=== PATIENT | female | born 1955 | race Caucasian/White ===

== ENCOUNTER 2016-10-22 21:12 | Emergency (ER) | payer OTHER ==
[2016-10-22 21:22] VITALS: BP 161/83; BMI 26.5
[2016-10-22] MEDS ORDERED: ZOFRAN INJ 4 MG VIAL ONE (21:22)
[2016-10-22] MEDS ORDERED: ZOFRAN INJ 4 MG VIAL IVP ONE (21:23)
[2016-10-22] MEDS ORDERED: MORPHINE SULFATE INJ 4 MG IVP ONE (21:23)
[2016-10-22] MEDS ORDERED: MORPHINE SULFATE INJ 4 MG ONE (21:23)
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
[2016-10-22 21:40] LABS: BASOPHILS % (AUTO) 0.6 % (0.2-1.0); EOSINOPHILS # (AUTO) 0.1 x10^3/uL (0.0-0.2); EOSINOPHILS % (AUTO) 1.2 % (0.9-2.9); HEMATOCRIT 38.1 % (36.0-47.0); HEMOGLOBIN 12.9 g/dL (12.0-16.0); LYMPHOCYTES # (AUTO) 3.7 X10^3/uL (1.3-2.9); LYMPHOCYTES % (AUTO) 48.4 % (21.0-51.0); MEAN CORPUSCULAR HEMOGLOBIN 28.6 pg (27.0-34.0); MEAN CORPUSCULAR HGB CONC 33.9 g/dL (33.0-35.0); MEAN CORPUSCULAR VOLUME 84.3 fL (80.0-100.0); MEAN PLATELET VOLUME 7.6 fL (7.4-11.0); MONOCYTES # (AUTO) 0.6 x10^3/uL (0.3-0.8); MONOCYTES % (AUTO) 7.3 % (0.0-13.0); NEUTROPHILS # (AUTO) 3.2 x10^3/uL (2.2-4.8); NEUTROPHILS % (AUTO) 42.5 % (42.0-75.0); PLATELET COUNT 244 X10^3/uL (150.0-450.0); RED BLOOD COUNT 4.51 X10^6/uL (3.5-5.4); RED CELL DISTRIBUTION WIDTH 13.1 % (11.6-16.5); WHITE BLOOD COUNT 7.6 X10^3/uL (3.6-10.0)
[2016-10-22 22:01] LABS: BLOOD UREA NITROGEN 18 mg/dL (7-18); CALCIUM 9.2 mg/dL (8.5-10.1); CARBON DIOXIDE 23.8 mmol/L (21-32); CHLORIDE 106 mmol/L (98-107); COR NA(FOR HYPERGLY) 143 mmol/L (136-145); CREATININE 1.03 mg/dL (0.55-1.02); GLUCOSE 151 mg/dL (65-99); SODIUM 142 mmol/L (136-145); TROPONIN I < 0.02 ng/mL (0-1.5); eGFR BLACK RACES > 60 (>60); eGFR NON BLACK RACES 58 (>60)
[2016-10-22 22:07] LABS: ALANINE AMINOTRANSFERASE 26 Units/L (12-78); ALKALINE PHOSPHATASE 63 Units/L (46-116); ASPARTATE AMINO TRANSFERASE 20 Units/L (15-37); CKMB % 1.5 % (<4); CREATINE KINASE 69 Units/L (26-192); CREATINE KINASE MB < 1.0 ng/mL (0-4.0); TOTAL PROTEIN 7.4 g/dL (6.4-8.2)
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
[2016-10-22] MEDS ORDERED: FLEXERIL TAB 10 MG PO ONE (23:40)
[2016-10-22] MEDS ORDERED: ULTRAM PO ONE (23:40)
[2016-10-22] MEDS ORDERED: FLEXERIL TAB 10 MG ONE (23:41)
[2016-10-22] MEDS ORDERED: ULTRAM ONE (23:43)
== END 2016-10-22 23:54 | disposition home or self-care (01) ==
LOC: ER 21:12
DX: R07.2 Precordial pain (principal); V49.9XXA Car occupant (driver) (passenger) injured in unspecified traffic accident, initial encounter
CPT/HCPCS: 36415; 70450; 71250; 72125; 73030; 80053; 82550; 82553; 84484; 85025; 93005; 96365; 96374; 96375; 99283; A4222; J2270; J2405

== ENCOUNTER 2016-11-29 21:45 | Emergency (ER) | payer SELFPAY ==
[2016-11-29 21:52] VITALS: BP 134/80; BMI 26.1
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
--- NOTE | 2016-11-29 23:26 | VAS ---
Exam: Left lower extremity ultrasound exam History: Lower extremity swelling/pain Comparison: None Technique: Real-time duplex scan of the lower extremity venous system was performed using B-mode/gra yscale imaging, Doppler spectral analysis, and color flow. Findings: Evaluation of the deep veins of the left lower extremity from the common femoral vein thr ough the popliteal vein demonstrated normal patency and no evidence of DVT. There was normal compre ssibility throughout the deep venous system. There was normal augmentation response, Valsalva respo nse, and respiratory phasicity. The deep veins below the knee were patent. Conclusion: Normal left lower extremity venous exam. No evidence of DVT. Reported By:
== END 2016-11-29 23:37 | disposition home or self-care (01) ==
LOC: ER 21:55
DX: I80.9 Phlebitis and thrombophlebitis of unspecified site (principal)
CPT/HCPCS: 36415; 85378; 93971; 99282; 99283

== ENCOUNTER 2017-05-10 17:12 | Emergency (ER) | payer OTHER ==
[2017-05-10 17:26] VITALS: BMI 26.1
[2017-05-10] MEDS ORDERED: TORADOL 30 MG VIAL IVP ONE (17:27)
[2017-05-10] MEDS ORDERED: TORADOL 30 MG VIAL ONE (17:28)
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
[2017-05-10] MEDS ORDERED: MORPHINE SULFATE INJ 4 MG IVP ONE (18:18)
[2017-05-10] MEDS ORDERED: ZOFRAN INJ 4 MG VIAL IVP ONE (18:18)
[2017-05-10] MEDS ORDERED: ZOFRAN INJ 4 MG VIAL ONE (18:19)
[2017-05-10] MEDS ORDERED: MORPHINE SULFATE INJ 4 MG ONE (18:20)
[2017-05-10] MEDS ORDERED: LEVSIN/MAALOX/LIDOC VISC PO ONE (19:45)
[2017-05-10] MEDS ORDERED: LEVSIN/MAALOX/LIDOC VISC ONE (19:46)
[2017-05-10 19:50] VITALS: BP 147/88
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
--- NOTE | 2017-05-10 21:12 | RAD ---
Examination: Left shoulder, two views History: Left shoulder pain he Findings: There is degenerative narrowing of the acromioclavicular joint. No fracture or dislocation or bone destruction or soft tissue calcification is noted. Impression: Degenerative changes of the acromioclavicular articulation. No acute process demonstrated . Reported By:
== END 2017-05-10 20:13 | disposition home or self-care (01) ==
LOC: ER 17:18
DX: S29.019A Strain of muscle and tendon of unspecified wall of thorax, initial encounter (principal); S39.012A Strain of muscle, fascia and tendon of lower back, initial encounter; S13.9XXA Sprain of joints and ligaments of unspecified parts of neck, initial encounter; S43.402A Unspecified sprain of left shoulder joint, initial encounter; S09.90XA Unspecified injury of head, initial encounter; G44.311 Acute post-traumatic headache, intractable; V87.7XXA Person injured in collision between other specified motor vehicles (traffic), initial encounter
CPT/HCPCS: 70450; 72125; 72128; 72131; 73030; 96365; 96374; 96375; 99283; J1885; J2270; J2405

== ENCOUNTER 2019-10-28 14:38 | Observation (INO) ==
[2019-10-28 15:39] LABS: BASOPHILS % (AUTO) 0.5 % (0.2-1.0); EOSINOPHILS # (AUTO) 0.1 x10^3/uL (0.0-0.2); EOSINOPHILS % (AUTO) 1.6 % (0.9-2.9); HEMATOCRIT 40.4 % (36.0-47.0); HEMOGLOBIN 13.6 g/dL (12.0-16.0); LYMPHOCYTES # (AUTO) 3.1 X10^3/uL (1.3-2.9); LYMPHOCYTES % (AUTO) 37.6 % (21.0-51.0); MEAN CORPUSCULAR HGB CONC 33.6 g/dL (33.0-35.0); MEAN CORPUSCULAR VOLUME 86.3 fL (80.0-100.0); MEAN PLATELET VOLUME 7.7 fL (7.4-11.0); MONOCYTES # (AUTO) 0.6 x10^3/uL (0.3-0.8); MONOCYTES % (AUTO) 6.9 % (0.0-13.0); NEUTROPHILS # (AUTO) 4.5 x10^3/uL (2.2-4.8); NEUTROPHILS % (AUTO) 53.4 % (42.0-75.0); PLATELET COUNT 274 X10^3/uL (150.0-450.0); RED BLOOD COUNT 4.68 X10^6/uL (3.5-5.4); RED CELL DISTRIBUTION WIDTH 12.9 % (11.6-16.5); WHITE BLOOD COUNT 8.3 X10^3/uL (3.6-10.0)
--- NOTE | 2019-10-28 15:41 | RAD ---
HISTORYchest pain, sob, tachycardiaSTUDYCHEST, 1 VIEWCOMPARISONNoneFINDINGSThe trachea is midline. The cardiac silhouette is unremarkable . The lungs are clear without focal infiltrate or effusion. The bony thorax is unremarkable.IMPRESSIONNo acute cardiopulmonary disease.Electronically signed by: NATALIE BURCH (Oct 28, 2019 15:40:37)
[2019-10-28 16:12] LABS: ALANINE AMINOTRANSFERASE 37 Units/L (12-78); ALBUMIN 4.4 g/dL (3.4-5.0); ALKALINE PHOSPHATASE 53 Units/L (46-116); ASPARTATE AMINO TRANSFERASE 22 Units/L (15-37); BLOOD UREA NITROGEN 13 mg/dL (7-18); CALCIUM 9.8 mg/dL (8.5-10.1); CARBON DIOXIDE 24.7 mmol/L (21-32); CHLORIDE 103 mmol/L (98-107); CKMB % 1.3 % (<4); COR NA(FOR HYPERGLY) 143 mmol/L (136-145); CREATINE KINASE 75 Units/L (26-192); CREATINE KINASE MB < 1.0 ng/mL (0-4.0); CREATININE 0.88 mg/dL (0.55-1.02); SODIUM 142 mmol/L (136-145); TOTAL PROTEIN 7.7 g/dL (6.4-8.2); TROPONIN I < 0.02 ng/mL (0-1.5); eGFR NON BLACK RACES > 60 (>60)
[2019-10-28] MEDS ORDERED: MICRO K EXTEN CAP 10 MEQ PO PRN (16:40)
[2019-10-28] MEDS ORDERED: POTASSIUM CHL 40 MEQ/NS 0.45% 500 ML IV PRN (16:40)
[2019-10-28] MEDS ORDERED: KLOR-CON PO PRN (16:40)
[2019-10-28] MEDS ORDERED: MAGNESIUM SULFATE 1 GRAM/100 mL PREMIX 1 GM/100 ML BAG IV PRN (16:40)
[2019-10-28] MEDS ORDERED: K-DUR TAB 20 MEQ PO PRN (16:40)
[2019-10-28] MEDS ORDERED: K-RIDER 10 MEQ/NS 100 ML 10 MEQ/100 ML BAG IV PRN (16:40)
[2019-10-28] MEDS ORDERED: POTASSIUM CHLORIDE LIQ 20 MEQ UDC PO PRN (16:40)
[2019-10-28] MEDS ORDERED: POTASSIUM CHL 60 MEQ/NS 0.45% 500 ML IV PRN (16:40)
[2019-10-28 17:00] VITALS: BMI 27.8
[2019-10-28] MEDS: NS 1000 ML 1,000 ML IV SCH (17:16)
[2019-10-28] MEDS ORDERED: KLOR-CON ONE (17:20)
[2019-10-28 18:33] LABS: AMYLASE 121 Units/L (25-115); LIPASE 331 Units/L (73-393)
[2019-10-28] MEDS ORDERED: XANAX PO PRN (19:43)
[2019-10-28 20:04] LABS: CKMB % 1.5 % (<4); CREATINE KINASE 66 Units/L (26-192); CREATINE KINASE MB < 1.0 ng/mL (0-4.0); TROPONIN I < 0.02 ng/mL (0-1.5)
[2019-10-28] MEDS: PROTONIX INJ 40 MG VIAL IVP SCH (20:15)
[2019-10-28] MEDS: REGLAN TAB 10 MG PO SCH (20:15)
[2019-10-28] MEDS ORDERED: TYLENOL 325 MG TAB PO PRN (21:08)
[2019-10-28 23:41] LABS: CKMB % 1.8 % (<4); CREATINE KINASE 57 Units/L (26-192); CREATINE KINASE MB < 1.0 ng/mL (0-4.0); TROPONIN I < 0.02 ng/mL (0-1.5)
[2019-10-29 05:51] LABS: BASOPHILS % (AUTO) 0.5 % (0.2-1.0); EOSINOPHILS # (AUTO) 0.2 x10^3/uL (0.0-0.2); EOSINOPHILS % (AUTO) 3.3 % (0.9-2.9); HEMATOCRIT 37.4 % (36.0-47.0); HEMOGLOBIN 12.7 g/dL (12.0-16.0); LYMPHOCYTES # (AUTO) 2.4 X10^3/uL (1.3-2.9); LYMPHOCYTES % (AUTO) 43.1 % (21.0-51.0); MEAN CORPUSCULAR HEMOGLOBIN 29.5 pg (27.0-34.0); MEAN CORPUSCULAR VOLUME 86.8 fL (80.0-100.0); MEAN PLATELET VOLUME 7.9 fL (7.4-11.0); MONOCYTES # (AUTO) 0.5 x10^3/uL (0.3-0.8); MONOCYTES % (AUTO) 8.1 % (0.0-13.0); NEUTROPHILS # (AUTO) 2.5 x10^3/uL (2.2-4.8); PLATELET COUNT 228 X10^3/uL (150.0-450.0); RED BLOOD COUNT 4.31 X10^6/uL (3.5-5.4); RED CELL DISTRIBUTION WIDTH 13.3 % (11.6-16.5); WHITE BLOOD COUNT 5.6 X10^3/uL (3.6-10.0)
[2019-10-29 06:02] LABS: ALANINE AMINOTRANSFERASE 30 Units/L (12-78); ALBUMIN 3.6 g/dL (3.4-5.0); ALKALINE PHOSPHATASE 45 Units/L (46-116); ASPARTATE AMINO TRANSFERASE 18 Units/L (15-37); BLOOD UREA NITROGEN 14 mg/dL (7-18); CALCIUM 8.7 mg/dL (8.5-10.1); CARBON DIOXIDE 24.9 mmol/L (21-32); CHLORIDE 107 mmol/L (98-107); CHOL/HDL RATIO 5.4 (0.0-5.0); CHOLESTEROL 172 mg/dL (0-200); COR NA(FOR HYPERGLY) 142 mmol/L (136-145); CREATININE 0.81 mg/dL (0.55-1.02); HDL CHOLESTEROL 32 mg/dL (40-60); SODIUM 141 mmol/L (136-145); TOTAL PROTEIN 6.6 g/dL (6.4-8.2); TRIGLYCERIDES 111 mg/dL (0-150); eGFR NON BLACK RACES > 60 (>60)
[2019-10-29] MEDS: NS 1000 ML 1,000 ML IV SCH (06:47)
[2019-10-29] MEDS: PROTONIX INJ 40 MG VIAL IVP SCH (08:18)
[2019-10-29] MEDS: REGLAN TAB 10 MG PO SCH (08:18)
--- NOTE | 2019-10-29 08:53 | DR.H&P ---
H&P - History & Physical for Day of: H&P Date: 10/28/19 - Chief Complaint Chief Complaint: SOB, PALPITATIONS, DIZZINESS - History of Present Illness History of Present Illness: PT IS 64 WF DIRECT ADMIT FROM DR GALAVIZ OFFICE AFTER PRESENTING WITH "ABOUT TO PASS OUT" PT HAD TACHYCARDIA AND SOB.PT HAD GENERALIZED PALLOR AND DIAPHORETIC ON EXAM. PT CO DIZZINESS WITH NUMBNESS TO LEFT HAND AND LEFT JAW, NECK. PT HAS PMH OF DM, CAD, AND HTN. PT STATES HER BLOOD SUGAR WAS NORMAL THIS AM AND SHE DENIES ANY KNOWN INJURY. - Past Medical History Past Medical History: Coronary Artery Disease, Diabetes - Past Surgical History Surgical History: Appendectomy, Cholecystectomy, Hysterectomy - Family History Family Medical History: Diabetes Mellitus, Hypertension - Social History Does patient currently use any type of tobacco product: No Have you used tobacco products in the last 12 months: No Type of Tobacco Use: None Does any household member use tobacco: No Alcohol Use: None Drug Use: None - Medications Home Medications: Iodinated Contrast Media Allergy (Verified 10/28/19 15:17) morphine Allergy (Verified 10/28/19 15:17) CONTINUE taking the following medications alprazolam [Xanax] 0.5 mg PO DAILY PRN 10/28/19 [History] cyclobenzaprine 10 mg PO TID PRN 10/28/19 [History] diclofenac sodium 100 mg PO DAILY 10/28/19 [History] fluticasone propionate [Flonase Allergy Relief] 2 spray INTRANASAL BID 10/28/19 [History] gabapentin 300 mg PO DAILY 10/28/19 [History] metformin 500 mg PO BID 10/28/19 [History] metoclopramide HCl 10 mg PO BID 10/28/19 [History] pantoprazole [Protonix] 40 mg PO DAILY 10/28/19 [History] - Review of Systems Constitutional: Chills, Weakness Eyes: No Symptoms Reported ENT: No Symptoms Reported Respiratory: Shortness of Breath, SOB with Excertion Cardiovascular: Palpitations, Light Headedness Gastrointestinal: Nausea Musculoskeletal: No Symptoms Reported Skin: No Symptoms Reported Neurological: Weakness, Other (DIZZINESS, HEADACHE) - Physical Exam Vital Signs: Temperature 98.7 F Pulse Rate [Right Brachial] 88 Respiratory Rate 18 Blood Pressure [Right Arm] 129/73 Blood Pressure 125/74 O2 Sat by Pulse Oximetry 98 Oriented: Normal Eyes: Normal Ear: Normal Nose: Normal Throat: Normal Respiratory: RLL Diminished, LLL Diminished Cardiovascular: Tachycardia, Other : Normal Auscultation: Bowel Sounds: Normal Tenderness: Epigastric Skin: Decreased Turgur Musculoskeletal: Tender (C SPINE TENDERNESS) Psychiatric: Anxiety Mood Description: Anxious Affect: Anxious Speech Pattern: Excessive - Assessment/Plan (1) Near syncope Status: Acute Plan: ADMIT, SERIAL CE AND EKG. CT HEAD W/O R/O CVA, CT C SPINE. GENTLE IV HYDRATION, STRICT I& OS. BS CONTROL, TELEMETRY. BP MONITORING, VERIFY HOME MEDICATION (2) Dizziness Status: Acute (3) Left hand paresthesia Status: Acute (4) SOB (shortness of breath) Status: Acute - Allergies Allergies/Adverse Reactions: Allergies Allergy/AdvReac Type Severity Reaction Status Date / Time Iodinated Contrast Media Allergy Verified 10/28/19 15:17 morphine Allergy Verified 10/28/19 15:17
[2019-10-29] MEDS ORDERED: AMOXIL CAP 500 MG PO ONE ×2 (11:05→11:08)
[2019-10-29 11:38] VITALS: BP 109/62
--- NOTE | 2019-10-29 13:22 | RAD ---
[id number] female with neck painSTUDYCervical spine five viewsCOMPARISONNoneFINDINGSCervical vertebral bodies are normally aligned with no offset identified on the lateral view. There is mild narrowing of the C2-3 and C4-5 disc spaces. The other cervical disc spaces are maintained. Small anterior osteophytes are noted in the mid and lower cervical spine. On the oblique views, neural foramina are patent. No acute bony abnormality is identified on this exam.IMPRESSIONMild degenerative changes are present in the cervical spine as described above.Electronically signed by: NATALIE BURCH (Oct 29, 2019 13:21:27)
--- NOTE | 2019-10-29 13:34 | RAD ---
HISTORYLBP CA, DM, CAD PSH: APPENDIX, GB, HYSTSTUDYLUMBAR SPINE, COMPLETECOMPARISONNoneFINDINGSThere is mild disc space narrowing throughout with mild marginal osteophytes throughout which is most prominent along the upper lumbar region. No fracture or subluxation is seen. The vertebral body height is well maintained throughout. There are mild sclerotic changes of the facets throughout with no pars defects. The pedicles are intact. The bones are osteopenic.IMPRESSIONMild degenerative disc changes throughout which is most prominent along the upper lumbar region with no acute abnormality seen.Mild osteoarthritic changes of the facets inferiorly with no pars defects.Electronically signed by: DANIS SMITH (Oct 29, 2019 13:32:54)
== END 2019-10-29 14:20 | disposition home or self-care (01) ==
LOC: MED/SURG
PROVIDERS: ADMIT Internal Medicine; ATTEND Internal Medicine
DX: R42 Dizziness and giddiness; R06.02 Shortness of breath; R00.2 Palpitations; E87.6 Hypokalemia; R07.89 Other chest pain; I10 Essential (primary) hypertension; E11.65 Type 2 diabetes mellitus with hyperglycemia; R20.2 Paresthesia of skin; I25.10 Atherosclerotic heart disease of native coronary artery without angina pectoris; R53.1 Weakness; R55 Syncope and collapse

== ENCOUNTER 2020-02-21 21:10 | Observation (INO) ==
--- NOTE | 2020-02-21 21:23 | DR.CP ---
HPI - Time Seen Time seen: 21:14 - Complaint Chief Complaint Doctor Comments: Patient is complaining of substernal chest pain for the past nine hours gettting progressively worst. Onset of severe pain while with grand child. Patient states she took four 81mg aspirin earlier today when the pain started and it helped the pain but it came back and she took another 81mg aspirin about 20 minutes before the ambulance arrived. Patient is complaining of sharp pain similar to the pain she had in 2005 when she had a heart attack then. 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 Yoder recently for irregular heart beat but was not able to be evaluated. She denieis tobacco, alcohol or drug usage. States she did not take any nitroglycerin because she did not have any at home. States she has right side headache but she thinks it is coming from bad teeth in that area. She denies cold, cough, fever, chills or vomiting. States the pain is 8 of 10. States she is a diabetic and has IBS. - COVID-19 Coronavirus risk:travel/contact w/high risk person: No Has patient experienced Coronavirus symptoms: No - Reviewed Nurses Notes Review: Yes - Source History Provided: Patient, EMS - Mode of Arrival Mode of Arrival: EMS - Timing Came on: Gradually Pain: Present Now - Duration Duration: Intermittent How lon Duration: Hours - Location Location of Chest Pain: Chest Chest Pain Radiation Location: None - Context Onset: At rest Cardiac Risk Factors: Diabetes PE Risk Factors: None History of: Similar pain in the past, SC, Aspirin in last 24 hours Prehospital Care: ASA - Quality Quality: Sharp - Severity Severity: Moderate, Severe - Modifying Factors Worsens: Nothing Impoves: Other (aspirin) - Associated Signs and Symptoms Associated Signs and Symptoms: None PMH - PMH Past Medical History: Coronary Artery Disease, Diabetes, Anxiety Past Surgical History: Yes Surgical History: Appendectomy, Cholecystectomy, [employer] Surgery, Hysterectomy - Family History Family Medical History: Diabetes Mellitus, Hypertension - Social History Do you use any recreational Drugs:: No ROS - Review of Systems Constitutional: No Symptoms Reported Eyes: No Symptoms Reported ENTM: No Symptoms Reported Respiratoy: No Symptoms Reported. negative: See HPI, Productive Cough, Non- Productive Cough, Moist Cough, Dry Cough, Hacking Cough, Barking Cough, Brassy Cough, Orthopnea, Short of Breath, Stridor, Wheezing, Hemoptysis, Other Cardiovascular: No Symptoms Reported, Chest Pain Gastrointestinal/Abdominal: No Symptoms Reported. negative: See HPI, Abdominal Pain, Constipation, Diarrhea, Nausea, Vomiting, Food Intolerance, Other Genitourinary: No Symptoms Reported Neurological: No Symptoms Reported Musculoskeletal: No Symptoms Reported Integumentary: No Symptoms Reported Hematologic/Lymphatic: No Symptoms Reported. negative: See HPI, Anemia, Blood Clots, Easy Bleeding, Easy Bruising, Swollen Glands, Lymphadenopathy, Other Endocrine: No Symptoms Reported Psychiatric: No Symptoms Reported. negative: See HPI, Anxiety, Depression, Hallucinations, Excessive crying, Suicidal, Other PE - General Limitations: No Limitations General Appearance: Alert, In Distress (slight) - Head Head Exam: Normal Inspection, Atraumatic, Normocephalic - Eyes Eye exam: Normal Appearance, PERRL, EOMI. negative: Scleral Icterus, Conj unctival Injection, Nystagmus, Miosis, Mydrasis, Periorbital Swelling, Periorbital Tenderness, Other - ENT ENT Exam: Normal Exam, Normal Oropharynx, Normal External Ear Exam, Mucous Membranes Moist, TM's Normal Bilaterally - Chest Chest Inspection: Normal Inspection, Symmetric Chest Wall Rise - Respiratory Respiratory Exam: Normal Lung Sounds Bilat Respiratory Exam: Bilateral Clear to Auscultation - Cardiovascular Cardiovascular Exam: Regular Rate, Normal Rhythm, Normal Heart Sounds Pulse: Normal Edema: Normal - Abdominal Exam Abdominal Exam: Normal Inspection, Normal Bowel Sounds, Soft. negative: Distention, Tenderness, Guarding, Rebound, Rigidity, Dimnished Bowel Sounds, Hyperactive Bowel Sounds, Hypoactive Bowel Sounds, Organomegaly, Trauma, Incision, Ascites, Mass, Bruit, Pulsatile Mass, Hernia, Other Abdominal Tenderness: negative: RUQ, RLQ, LUQ, LLQ, Epigastrium, Suprapubic, Diffuse, Mild, Moderate, Severe, Other - Extremities Extremities Exam: Normal Inspection, Full ROM, Normal Capillary Refill. negative: Tenderness, Edema, Joint Swelling, Calf Tenderness, Other - Back Back Exam: Normal Inspection, Full ROM. negative: Tenderness, (R) CVA Tenderness, (L) CVA Tenderness, Muscle Spasm, Paraspinal Tenderness, Vertebral Tenderness, Rashes, (R) Sciatic Notch Tenderness, (L) Sciatic Notch Tendern, (R) Straight Leg Raise, (L) Straight Leg Raise, Other - Neurologic Neurological Exam: Alert, Oriented X3, CN II-XII Intact, Reflexes Normal. negative: Normal Gait (gait not tested) - Psychiatric Psychiatric Exam: Normal Affect, Normal Mood. negative: Depressed, Agitated, Anxious, Flat Affect, Manic, Homicidal Ideation, Suicidal Ideation, Other - Skin Skin Exam: Warm, Dry, Intact, Normal Color. negative: Rash, Cyanosis, Diaphoresis, Erythema, Pallor, Mottled, Other - Vitals Vitals: Temperature 97.7 F Pulse Rate [Right Radial] 88 Pulse Rate 74 Respiratory Rate 20 Blood Pressure [Right Arm] 137/74 Blood Pressure 170/73 O2 Sat by Pulse Oximetry 100 Course - Reevaluation 1st: Improved - Consultation Called: 23:52 Call Returned: 23:52 (Dr. Marcelino to admit to OBS) - Education/Counseling Education/Counseling: Patient, Family Educated On: Treatment, Diagnosis, Prognosis, Needs for Follow Up ROR - Labs Reviewed Laboratory Results Reviewed?: Yes (All labs and x-ray results reviewed and discussed with patiaent) Result Diagrams: 02/21/20 21:25 02/21/20 21: - XRAY XRAY Interpreted by: Radiologist (CXR:d No acute cardiopulmonary disease) - EKG Rate: 72 [place]: Normal Rhythm: NSR, PVCs ST: Nonsp - Labs Reviewed Laboratory: WBC 7.6 X10^3/uL (3.6-10.0) 02/21/20 21: RBC 4.58 X10^6/uL (3.5-5.4) 02/21/20 21: Hgb 13.5 g/dL (12.0-16.0) 02/21/20 21: Hct 39.9 % (36.0-47.0) 02/21/20 21: MCV 87.1 fL (80.0-100.0) 02/21/20 21: MCH 29.5 pg (27.0-34.0) 02/21/20 21: MCHC 33.8 g/dL (33.0-35.0) 02/21/20 21: RDW 13.0 % (11.6-16.5) 02/21/20: Plt Count 264 X10^3/uL (150.0-450.0) 02/21/20 21:25 MPV 7.6 fL (7.4-11.0) 02/21/20 21: Neut % (Auto) 45.7 % (42.0-75.0) 02/21/20: Lymph % (Auto) 45.1 % (21.0-51.0) 02/21/20: [place] % (Auto) 7.7 % (0.0-13.0) 02/21/20: Eos % (Auto) 1.0 % (0.9-2.9) 02/21/20: Baso % (Auto) 0.5 % (0.2-1.0) 02/21/20: Neut # (Auto) 3.5 x10^3/uL (2.2-4.8) 02/21/20: Lymph # (Auto) 3.4 X10^3/uL (1.3-2.9) H 02/21/20: [place] # (Auto) 0.6 x10^3/uL (0.3-0.8) 02/21/20 21: Eos # (Auto) 0.1 x10^3/uL (0.0-0.2) 02/21/20: Baso # (Auto) 0.0 X10^3/uL (0.0-0.1) 02/21/20: Absolute Nucleated RBC 0.1 /100WBC 02/21/20: PT 12.4 SECONDS (11.8-14.3) 02/21/20 21: INR Target Range - 02/21/20: INR 0.95 (0.8-1.3) 02/21/20: APTT 28.8 SECONDS (22.9-36.5) 02/21/20 21: PTT Comment - 02/21/20 21: Sodium 142 mmol/L (136-145) 02/21/20 21: Corrected Sodium 143 mmol/L (136-145) 02/21/20 21: Potassium 4.1 mmol/L (3.5-5.1) 02/21/20 21: Chloride 106 mmol/L (98-107) 02/21/20 21:25 Carbon Dioxide 23.6 mmol/L (21-32) 02/21/20 21:25 BUN 16 mg/dL (7-18) 02/21/20 21:25 Creatinine 0.95 mg/dL (0.55-1.02) 02/21/20 21:25 Est GFR (MDRD) Af Amer > 60 (>60) 02/21/20 21:25 Est GFR (MDRD) Non-Af > 60 (>60) 02/21/20 21:25 Glucose 145 mg/dL (65-99) H 02/21/20 21:25 Calcium 9.4 mg/dL (8.5-10.1) 02/21/20 21:25 Corrected Calcium TNP 02/21/20: Magnesium 1.9 mg/dL (1.7-2.9) 02/21/20 21:25 Total Bilirubin 0.80 mg/dL (0.2-1.0) 02/21/20 21:25 AST 20 Units/L (15-37) 02/21/20 21:25 ALT 29 Units/L (12-78) 02/21/20 21:25 Alkaline Phosphatase 69 Units/L (46-116) 02/21/20 21:25 Creatine Kinase 86 Units/L (26-192) 02/21/20 23:28 CK-MB (CK-2) 1.2 ng/mL (0-4.0) 02/21/20 23: CK/CKMB % Calc 1.4 % (<4) 02/21/20 23: Troponin I < 0.02 ng/mL (0-1.5) 02/21/20 23:28 Total Protein 7.4 g/dL (6.4-8.2) 02/21/20 21:25 Albumin 4.2 g/dL (3.4-5.0) 02/21/20: Globulin 3.2 g/dL (2.5-4.5) 02/21/20 21:25 Albumin/Globulin Ratio 1.3 Ratio (1.1-2.1) 02/21/20 21:25 Amylase 163 Units/L (25-115) H 02/21/20 21:25 Lipase 397 Units/L (73-393) H 02/21/20 21:25 Opioid - Opioid Risk Tool Age (Chauncey box if 16-45): No History of Preadolescent Sexual Abuse: No Total: 0 Total Score Risk Category: Low Risk - Diagnosis Discharge Problem: Chest pain, rule out acute myocardial infarction, Hyperglycemia, PVC (premature ventricular contraction) Pancreatitis Qualifiers: Pancreatitis type: unspecified pancreatitis type - Discharge Plan Disposition: ADMITTED INPATIENT Condition: Stable - Follow ups/Referrals Follow ups/Referrals: FACUNDO DESIR [Nurse Practitioner] - 3 days - Instructions
[2020-02-21 21:32] LABS: BASOPHILS % (AUTO) 0.5 % (0.2-1.0); EOSINOPHILS # (AUTO) 0.1 x10^3/uL (0.0-0.2); HEMATOCRIT 39.9 % (36.0-47.0); HEMOGLOBIN 13.5 g/dL (12.0-16.0); LYMPHOCYTES # (AUTO) 3.4 X10^3/uL (1.3-2.9); LYMPHOCYTES % (AUTO) 45.1 % (21.0-51.0); MEAN CORPUSCULAR HEMOGLOBIN 29.5 pg (27.0-34.0); MEAN CORPUSCULAR HGB CONC 33.8 g/dL (33.0-35.0); MEAN CORPUSCULAR VOLUME 87.1 fL (80.0-100.0); MEAN PLATELET VOLUME 7.6 fL (7.4-11.0); MONOCYTES # (AUTO) 0.6 x10^3/uL (0.3-0.8); MONOCYTES % (AUTO) 7.7 % (0.0-13.0); NEUTROPHILS # (AUTO) 3.5 x10^3/uL (2.2-4.8); NEUTROPHILS % (AUTO) 45.7 % (42.0-75.0); PLATELET COUNT 264 X10^3/uL (150.0-450.0); RED BLOOD COUNT 4.58 X10^6/uL (3.5-5.4); WHITE BLOOD COUNT 7.6 X10^3/uL (3.6-10.0)
[2020-02-21] MEDS ORDERED: NS 1000 ML 1,000 ML ONE (21:35)
[2020-02-21] MEDS ORDERED: NITROSTAT ONE ×2 (21:38→22:04)
[2020-02-21] MEDS: NITROSTAT SL PRN ×2 (21:44→22:17)
[2020-02-21] MEDS: NS 1000 ML 1,000 ML IV SCH (21:44)
[2020-02-21 21:48] LABS: BLOOD UREA NITROGEN 16 mg/dL (7-18); CALCIUM 9.4 mg/dL (8.5-10.1); CARBON DIOXIDE 23.6 mmol/L (21-32); CHLORIDE 106 mmol/L (98-107); COR NA(FOR HYPERGLY) 143 mmol/L (136-145); CREATININE 0.95 mg/dL (0.55-1.02); SODIUM 142 mmol/L (136-145); TROPONIN I < 0.02 ng/mL (0-1.5); eGFR NON BLACK RACES > 60 (>60)
--- NOTE | 2020-02-21 21:48 | RAD ---
HISTORYChest painSTUDYCHEST, 1 VIEWCOMPARISONJune 2019FINDINGSThe trachea is midline. The cardiac silhouette is unremarkable . The lungs are clear without focal infiltrate or effusion. The bony thorax is unremarkable.IMPRESSIONNo acute cardiopulmonary disease.Electronically signed by: DOC SNOW (Feb 21, 2020 21:47:49)
[2020-02-21 21:53] LABS: ALANINE AMINOTRANSFERASE 29 Units/L (12-78); ALBUMIN 4.2 g/dL (3.4-5.0); ALKALINE PHOSPHATASE 69 Units/L (46-116); ASPARTATE AMINO TRANSFERASE 20 Units/L (15-37); CKMB % 1.3 % (<4); CREATINE KINASE 97 Units/L (26-192); CREATINE KINASE MB 1.3 ng/mL (0-4.0); MAGNESIUM 1.9 mg/dL (1.7-2.9); TOTAL PROTEIN 7.4 g/dL (6.4-8.2)
[2020-02-21] MEDS ORDERED: LEVSIN/MAALOX/LIDOC VISC PO ONE (22:16)
[2020-02-21] MEDS ORDERED: LEVSIN/MAALOX/LIDOC VISC ONE (22:17)
[2020-02-21 22:32] LABS: AMYLASE 163 Units/L (25-115); LIPASE 397 Units/L (73-393)
[2020-02-21] MEDS ORDERED: MORPHINE SULFATE INJ 2 MG INJ IVP ONE (22:58)
[2020-02-21] MEDS ORDERED: MORPHINE SULFATE INJ 2 MG INJ ONE (22:59)
[2020-02-21] MEDS ORDERED: BENADRYL INJ 50 MG VIAL ONE (23:04)
[2020-02-21] MEDS ORDERED: BENADRYL INJ 50 MG VIAL IVP STA (23:04)
[2020-02-21] MEDS ORDERED: ATIVAN INJ 2 MG VIAL IVP STA (23:43)
[2020-02-21] MEDS ORDERED: ATIVAN INJ 2 MG VIAL ONE (23:44)
[2020-02-21 23:55] LABS: CKMB % 1.4 % (<4); CREATINE KINASE 86 Units/L (26-192); CREATINE KINASE MB 1.2 ng/mL (0-4.0); TROPONIN I < 0.02 ng/mL (0-1.5)
[2020-02-22 03:26] VITALS: BMI 23.7
[2020-02-22 07:05] LABS: ALANINE AMINOTRANSFERASE 24 Units/L (12-78); ALBUMIN 3.5 g/dL (3.4-5.0); ALKALINE PHOSPHATASE 57 Units/L (46-116); ASPARTATE AMINO TRANSFERASE 16 Units/L (15-37); BLOOD UREA NITROGEN 13 mg/dL (7-18); CALCIUM 8.4 mg/dL (8.5-10.1); CARBON DIOXIDE 25.9 mmol/L (21-32); CHLORIDE 110 mmol/L (98-107); CHOL/HDL RATIO 4.9 (0.0-5.0); CHOLESTEROL 165 mg/dL (0-200); CKMB % 1.6 % (<4); COR NA(FOR HYPERGLY) 144 mmol/L (136-145); CREATINE KINASE 64 Units/L (26-192); CREATINE KINASE MB < 1.0 ng/mL (0-4.0); CREATININE 0.88 mg/dL (0.55-1.02); HDL CHOLESTEROL 34 mg/dL (40-60); SODIUM 143 mmol/L (136-145); TOTAL PROTEIN 6.4 g/dL (6.4-8.2); TRIGLYCERIDES 82 mg/dL (0-150); TROPONIN I < 0.02 ng/mL (0-1.5); eGFR NON BLACK RACES > 60 (>60)
[2020-02-22 07:15] LABS: AMYLASE 79 Units/L (25-115); LIPASE 161 Units/L (73-393)
[2020-02-22] MEDS ORDERED: NS 1000 ML 1,000 ML IV ONE (10:14)
[2020-02-22] MEDS ORDERED: LEVSIN/MAALOX/LIDOC VISC PO ONE (11:07)
[2020-02-22] MEDS ORDERED: LEVSIN/MAALOX/LIDOC VISC ONE (11:14)
[2020-02-22 11:40] LABS: CKMB % 1.6 % (<4); CREATINE KINASE 63 Units/L (26-192); CREATINE KINASE MB < 1.0 ng/mL (0-4.0); TROPONIN I < 0.02 ng/mL (0-1.5)
[2020-02-22 12:00] VITALS: BP 112/57
[2020-02-22] MEDS: NS 1000 ML 1,000 ML IV SCH (12:03)
--- NOTE | 2020-03-02 12:12 | DR.CARTERS ---
Short Stay Summary - Admission Date Date of Admission: 02/22/20 - Discharge Date Discharge Date: 02/22/20 - Admission Diagnoses (1) Chest pain, rule out acute myocardial infarction Status: Acute (2) Pancreatitis Status: Acute (3) Hyperglycemia Status: Acute - Hospital Course Hospital Course: IS A 64 YEAR OLD W/F PATIENT OF . SHE PRESENTED TO THE ER WITH COMPLAINTS OF SUBSTERNA CHEST PAIN FOR APPROXIMATELY 9 HOURS THAT HAD PROGRESSIVELY GOTTEN WORSE. SHE ALSO ADMITED TO A RIGHT SIDED HEADACHE. SHE REPORTED TAKING FOUR 81MG ASPIRIN WHEN PAIN STARTED. SHE REPORTED SLIGHT IMPROVEMENT AFTER ASPIRIN, BUT THEN PAIN STARTED AGAIN. SHE DESCRIBES PAIN SHARP AND INTERMITTENT. IT WAS RATED 8/10 ON ARRIVAL. SHE HAS A HISTORY OF MT AND CARDIAC ARRHYTHMIAS. SHE DENIED COLD, COUGH, FEVER, CHILLS, OR VOMITING. PMH INCLUDES: CAD, ANXIETY, IBS, DIABETES, MT, AND CARDIAC ARRHYTHMIA. ON ARRIVAL TO THE ER, VITALS WERE 97.7-74-20-100%-170/73. LABS WERE OBTAINED. ABNORMAL LAB VALUES INCLUDED THE FOLLOWING: GLUCOSE 145, AMYLASE 163, LIPASE 397. SHE DID ADMIT TO PANCREATITIS IN THE PAST. SHE DENIES ALCOHOL OR TOBACCO USE. CHEST XRAY WAS OBTAINED AND REVEALED: NO ACUTE CARDIOPULMONARY DISEASE. EKG REVEALED: SINUS RHYTHM WITH HR 83. SHE WAS GIVEN ATIVAN 1MG IV X 1, BENADRYL 50MG IV X 1, MO RPHINE 2MG IV X 1, GI COCKTAIL, NITROSTAT X 2, AND STARTED ON NORMAL SALINE AT 75 ML/HR. SHE REPORTED ONLY SLIGHT IMPROVEMENT IN SYMPTOMS. SHE WAS ADMITTED FOR FURTHER EVALUATION AND TREATMENT OF CHEST PAIN RULE OUT ACUTE MT, PANCREATITIS, AND HYPERGLYCEMIA. WE PLANNED TO OBTAIN SERIAL CARDIAC ENZYMES AND EKGS, CONTINUE IV FLUIDS, AND NITROGLYCERIN NEEDED. ON THE MORNING FOLLOWING ADMISSION, PATIENT IS ALERT AND ORIENTED, SITTING UP IN BED ON MORNING ROUNDS. SHE DENIES CHEST PAIN. SHE DOES ADMIT TO MILD EPIGASTRIC PAIN, HOWEVER, SHE REPORTS IMPROVEMENT IN SYMPTOMS SINCE ADMISSION AND IS RE QUESTING DISCHARGE HOME. SHE WAS GIVEN GI COCKTAIL 30 ML AND REPORTED IMPROVEMENT IN EPIGASTRIC PAIN. HER VITALS THIS MORNING ARE: 97.7-66-18-96%NC-106/53. LABS WERE OBTAINED. ABNORMAL LAB VALUES INCLUDE THE FOLLOWING: CHLORIDE 110, GLUCOSE 123, CALCIUM 8.4, CRP 4.00, LDL 115, HDL 34. CARDIAC ENZYMES HAVE BEEN WITHIN NORMAL LIMITS. NO CHANGES NOTED TO EKGS. WE PLANNED FOR DISCHARGE. INSTRUCTIONS FOR MEDICATIONS AND FOLLOW UP WERE DISCUSSED WITH PATIENT. SHE VERBALIZED UNDERSTANDING OF ALL ORDERS. SHE WAS GIVEN A NEW PRESCRIPTION FOR HYOSCYAMINE SULFATE 15ML PO TID PRN. SHE WAS INSTRUCTED TO FO LLOW UP WITH HER PRIMARY CARE PHYSICIAN NEXT WEEK FOR FURTHER WORK-UP. SHE WAS DISCHARGED HOME WITH FAMILY IN STABLE, IMPROVED CONDITION. - Discharge Medications Discharge Medications: Home Medication List potassium chloride 10 meq PO DAILY 02/21/20 [History] hyoscyamine sulfate 15 ml PO TID PRN #240 ml 02/22/20 [Rx] Prescriptions: hyoscyamine sulfate Cole Marcelino - Discharge Plan Disposition: HOME, SELF-CARE Condition: Stable Prescriptions: hyoscyamine sulfate 15 ml PO TID PRN #240 ml PRN Reason: - Follow up/Referrals Follow up/Referrals: JAILYN MAN [Primary Care Provider] - 1 WEEK - Instructions Instructions: Type 2 Diabetes Mellitus, Diagnosis, Adult, Nonspecific Chest Pain, [id number], Acute Pancreatitis, [id number] Additional Instructions: DIET TOLERATED. ACTIVITY TOLERATED. Forms: Excuse From Work or School, Precautions for COVID19, Patient Portal, Social Distancing
== END 2020-02-22 14:04 | disposition home or self-care (01) ==
LOC: ER 21:11 → MED/SURG 21:11
PROVIDERS: ADMIT Internal Medicine; ATTEND Internal Medicine
DX: K85.90 Acute pancreatitis without necrosis or infection, unspecified; R07.89 Other chest pain; R51 Headache; I25.10 Atherosclerotic heart disease of native coronary artery without angina pectoris; Z79.899 Other long term (current) drug therapy; E11.65 Type 2 diabetes mellitus with hyperglycemia; R79.82 Elevated C-reactive protein (CRP); F41.8 Other specified anxiety disorders

== ENCOUNTER 2023-08-07 14:34 | Observation (INO) ==
[2023-08-07] MEDS ORDERED: NovoLIN R (or HumuLIN R) SUBCUT PRN (16:16)
[2023-08-07] MEDS ORDERED: MORPHINE SULFATE INJ 2 MG INJ IVP PRN (16:19)
--- NOTE | 2023-08-07 16:32 | EKG ---
Test Reason : SOB Blood Pressure : */* mmHG Vent. Rate : 77 BPM Atrial Rate : 77 BPM P-R Int : 108 ms QRS Dur : 62 ms QT Int : 350 ms P-R-T Axes : 44 3 17 degrees QTc Int : 396 ms Sinus rhythm with short GA Otherwise normal ECG No previous ECGs available Confirmed by Fracisco Sanchez MD ([id number]) on 08/08/2023 7:38:09 AM Referred By: Confirmed By: Fracisco Sanchez MD
[2023-08-07 16:44] LABS: BASOPHILS # (AUTO) 0.1 X10^3/uL (0.0-0.1); BASOPHILS % (AUTO) 0.8 % (0.2-1.0); EOSINOPHILS # (AUTO) 0.1 x10^3/uL (0.0-0.2); EOSINOPHILS % (AUTO) 0.8 % (0.9-2.9); HEMATOCRIT 40.7 % (36.0-47.0); HEMOGLOBIN 13.5 g/dL (12.0-16.0); LYMPHOCYTES # (AUTO) 2.9 X10^3/uL (1.3-2.9); LYMPHOCYTES % (AUTO) 32.6 % (21.0-51.0); MEAN CORPUSCULAR HEMOGLOBIN 29.3 pg (27.0-34.0); MEAN CORPUSCULAR HGB CONC 33.1 g/dL (33.0-35.0); MEAN CORPUSCULAR VOLUME 88.4 fL (80.0-100.0); MEAN PLATELET VOLUME 7.5 fL (7.4-11.0); MONOCYTES # (AUTO) 0.5 x10^3/uL (0.3-0.8); NEUTROPHILS # (AUTO) 5.3 x10^3/uL (2.2-4.8); NEUTROPHILS % (AUTO) 59.8 % (42.0-75.0); PLATELET COUNT 224 X10^3/uL (150.0-450.0); RED BLOOD COUNT 4.61 X10^6/uL (3.5-5.4); RED CELL DISTRIBUTION WIDTH 13.6 % (11.6-16.5); WHITE BLOOD COUNT 8.9 X10^3/uL (3.6-10.0)
[2023-08-07 16:59] LABS: ALANINE AMINOTRANSFERASE 28 Units/L (12-78); ALBUMIN 3.6 g/dL (3.4-5.0); ALKALINE PHOSPHATASE 66 Units/L (46-116); ASPARTATE AMINO TRANSFERASE 11 Units/L (15-37); BLOOD UREA NITROGEN 18 mg/dL (7-18); CALCIUM 9.1 mg/dL (8.5-10.1); CARBON DIOXIDE 25.9 mmol/L (21-32); CHLORIDE 106 mmol/L (98-107); COR NA(FOR HYPERGLY) 140 mmol/L (136-145); CREATINE KINASE 55 Units/L (26-192); CREATININE 0.99 mg/dL (0.55-1.02); GLUCOSE 149 mg/dL (65-99); POTASSIUM 4.1 mmol/L (3.5-5.1); SODIUM 139 mmol/L (136-145); eGFR NON BLACK RACES 60 (>60)
[2023-08-07] MEDS ORDERED: CONSULT PHARMACY - POTASSIUM & MAGNESIUM XX SCH (17:00)
[2023-08-07 17:14] VITALS: BMI 27.3
[2023-08-07] MEDS: NS 1,000 ML IV 1,000 ML IV SCH (18:19)
[2023-08-07] MEDS: MAG-OX TAB PO SCH (20:13)
--- NOTE | 2023-08-07 20:48 | EKG ---
Test Reason : SOB Blood Pressure : */* mmHG Vent. Rate : 75 BPM Atrial Rate : 75 BPM P-R Int : 132 ms QRS Dur : 66 ms QT Int : 388 ms P-R-T Axes : 54 10 29 degrees QTc Int : 433 ms Normal sinus rhythm Low voltage QRS Borderline ECG When compared with ECG of 07-AUG-2023 16:21, (Unconfirmed) No significant change was found Confirmed by Fracisco Sanchez MD ([id number]) on 08/08/2023 7:36:26 AM Referred By: Confirmed By: Fracisco Sanchez MD
[2023-08-07 20:53] LABS: CREATINE KINASE 68 Units/L (26-192)
[2023-08-07] MEDS ORDERED: PATIENT'S HOME MEDICATION (Alprazolam [Xanax] 0.5 mg Tablet) PO PRN (21:07)
[2023-08-07] MEDS ORDERED: XANAX PO PRN (21:33)
[2023-08-07] MEDS: NEURONTIN CAP 300 MG PO SCH (21:44)
[2023-08-07] MEDS ORDERED: PHENERGAN TAB 25 MG PO SCH (22:00)
--- NOTE | 2023-08-08 00:30 | EKG ---
Test Reason : SOB Blood Pressure : */* mmHG Vent. Rate : 74 BPM Atrial Rate : 74 BPM P-R Int : 148 ms QRS Dur : 66 ms QT Int : 392 ms P-R-T Axes : 47 9 34 degrees QTc Int : 435 ms Normal sinus rhythm Normal ECG When compared with ECG of 07-AUG-2023 20:36, (Unconfirmed) No significant change was found Confirmed by Fracisco Sanchez MD ([id number]) on 08/08/2023 7:35:54 AM Referred By: Confirmed By: Fracisco Sanchez MD
[2023-08-08 01:06] LABS: CREATINE KINASE 58 Units/L (26-192)
[2023-08-08 06:07] LABS: BASOPHILS % (AUTO) 0.5 % (0.2-1.0); EOSINOPHILS # (AUTO) 0.1 x10^3/uL (0.0-0.2); EOSINOPHILS % (AUTO) 2.2 % (0.9-2.9); HEMATOCRIT 40.9 % (36.0-47.0); HEMOGLOBIN 13.5 g/dL (12.0-16.0); LYMPHOCYTES % (AUTO) 35.5 % (21.0-51.0); MEAN CORPUSCULAR HEMOGLOBIN 29.1 pg (27.0-34.0); MEAN CORPUSCULAR HGB CONC 32.9 g/dL (33.0-35.0); MEAN CORPUSCULAR VOLUME 88.5 fL (80.0-100.0); MEAN PLATELET VOLUME 7.9 fL (7.4-11.0); MONOCYTES # (AUTO) 0.5 x10^3/uL (0.3-0.8); MONOCYTES % (AUTO) 9.4 % (0.0-13.0); NEUTROPHILS % (AUTO) 52.4 % (42.0-75.0); PLATELET COUNT 214 X10^3/uL (150.0-450.0); RED BLOOD COUNT 4.62 X10^6/uL (3.5-5.4); RED CELL DISTRIBUTION WIDTH 13.8 % (11.6-16.5); WHITE BLOOD COUNT 5.6 X10^3/uL (3.6-10.0)
--- NOTE | 2023-08-08 06:12 | RAD ---
EXAM:CHEST, 1 VIEWHISTORY:chest pain;COMPARISON:05/12/2020 chest radiograph.TECHNIQUE:AP view of the chestFINDINGS:The cardiac and mediastinal contours are within normal limits. The lungs are clear without focal consolidation or segmental collapse. No pleural effusion or pneumothorax.IMPRESSION:No acute pulmonary process.THIS IS AN ELECTRONICALLY VERIFIED FINAL REPORT08/08/2023 6:09 AM - Electronically signed by Roland Webb MD
[2023-08-08 06:20] LABS: ALANINE AMINOTRANSFERASE 23 Units/L (12-78); ALBUMIN 3.2 g/dL (3.4-5.0); ALKALINE PHOSPHATASE 60 Units/L (46-116); ASPARTATE AMINO TRANSFERASE 10 Units/L (15-37); BLOOD UREA NITROGEN 12 mg/dL (7-18); CALCIUM 8.5 mg/dL (8.5-10.1); CARBON DIOXIDE 27.6 mmol/L (21-32); CHLORIDE 107 mmol/L (98-107); COR CA(FOR HYPOALB) 9.1 mg/dL (8.5-10.1); COR NA(FOR HYPERGLY) 141 mmol/L (136-145); CREATININE 0.66 mg/dL (0.55-1.02); GLUCOSE 133 mg/dL (65-99); MAGNESIUM 1.8 mg/dL (2.0-2.9); SODIUM 140 mmol/L (136-145); TOTAL PROTEIN 6.6 g/dL (6.4-8.2); eGFR NON BLACK RACES > 60 (>60)
[2023-08-08] MEDS ORDERED: CONSULT PHARMACY - POTASSIUM & MAGNESIUM XX SCH (07:00)
[2023-08-08] MEDS: NS 1,000 ML IV 1,000 ML with MAGNESIUM SULFATE 50% INJ VIAL 1 G IV SCH (07:12)
[2023-08-08 07:58] VITALS: PULSE 80
[2023-08-08] MEDS: FLONASE NASAL SPRAY ENOSTRIL SCH (08:13)
[2023-08-08] MEDS: SINGULAIR TAB 10 MG PO SCH (08:14)
[2023-08-08] MEDS: NexIUM PO SCH (08:14)
[2023-08-08] MEDS ORDERED: ALPRAZOLAM ODT PO PRN (09:00)
[2023-08-08 09:03] LABS: CHOL/HDL RATIO 4.1 (0.0-5.0)
[2023-08-08 09:05] LABS: HEMOGLOBIN A1C 6.7 %
[2023-08-08] MEDS ORDERED: PHENERGAN TAB 25 MG PO PRN (09:13)
--- NOTE | 2023-08-08 10:36 | DR.CARD ---
Cardiology Consult Allergies Allergies Allergy/AdvReac Type Severity Reaction Status Date / Time Iodinated Contrast Media Allergy Verified 02/21/20 21:21 Past Medical History Past Medical History: Anxiety, Coronary Artery Disease, Diabetes and [place] Past Surgical History Surgical History: Appendectomy, Cholecystectomy and Hysterectomy Family History Family Medical History: Diabetes Mellitus and Hypertension Social History Does patient currently use any type of tobacco product: No Have you used tobacco products in the last 12 months: No Type of Tobacco Use: None Does any household member use tobacco: No Alcohol Use: Occasionally Drug Use: None Medications Home Medications: Iodinated Contrast Media Allergy (Verified 02/21/20 21:21) CONTINUE taking the following medications esomeprazole magnesium 40 mg capsule,delayed release 40 mg PO DAILY 08/07/23 [History] montelukast 10 mg tablet 10 mg PO QDAY 08/07/23 [History] promethazine 25 mg tablet 25 mg PO Q4-6H 08/07/23 [History] Physical Exam Vital Signs: Vital Signs Temperature 97.7 F Temperature 97.6 F Pulse Rate [Left Brachial] 80 Pulse Rate [Left Brachial] 77 Respiratory Rate 18 Respiratory Rate 20 Blood Pressure [Left Arm] 113/57 Blood Pressure [Right Arm] 143/65 O2 Sat by Pulse Oximetry 96 O2 Sat by Pulse Oximetry 99
[2023-08-08] MEDS: ASPIRIN EC 81 MG PO SCH (10:40)
--- NOTE | 2023-08-08 11:29 | DR.CARTERS ---
Short Stay Summary - Admission Date Date of Admission: 08/07/23 - Discharge Date Discharge Date: 08/08/23 - Admission Diagnoses (1) Chest pain Status: Acute (2) CAD (coronary artery disease) Status: Acute (3) Diabetes mellitus Status: None (4) Gastroesophageal reflux disease Status: None - Hospital Course Vitals: Vital Signs Temperature 97.7 F 08/08/23 07:57 Temperature 97.6 F 08/08/23 04:00 Pulse Rate [Left Brachial] 80 08/08/23 07:57 Pulse Rate [Left Brachial] 77 08/08/23 04:00 Respiratory Rate 18 08/08/23 07:57 Respiratory Rate 20 08/08/23 04:00 Blood Pressure [Left Arm] 113/57 08/08/23 04:00 Blood Pressure [Right Arm] 143/65 08/08/23 07:57 - Discharge Medications Discharge Medications: Home Medication List esomeprazole magnesium 40 mg capsule,delayed release 40 mg PO DAILY 08/07/23 [History] montelukast 10 mg tablet 10 mg PO QDAY 08/07/23 [History] promethazine 25 mg tablet 25 mg PO Q4-6H 08/07/23 [History] aspirin 81 mg tablet,delayed release 81 mg PO DAILY #30 tabs 08/08/23 [Rx] rosuvastatin 5 mg tablet 5 mg PO HS #30 tabs 08/08/23 [Rx] Prescriptions: aspirin Cole Marcelino rosuvastatin Cole Marcelino - Hospital Course Hospital Course: IS A 68 YEAR OLD PATIENT OF OURS. SHE WAS A DIRECT ADMISSION TO THE HOSPITAL, OBSERVATION STATUS, FOR FURTHER EVALUATION AND TREATMENT OF CHEST PAIN AND INCREASED HEART RATE. PATIENTS MEDICAL HX INCLUDES: CAD, VA, ANGINA, CARDIAC ARRHYTHMIA, GERD, IBS, PANCREATITIS, DM II, ARTHRITIS, ANXIETY, APPENDECTOMY, CHOLECYSTECTOMY, AND HYSTERECTOMY. PATIENT ADMITED TO HAVING INTERMITTENT CHEST PAIN AND INCREASED HR FOR THE PAST 2-3 MONTHS, HOWEVER, SYMPTOMS HAD WORSENED OVER THE PAST WEEK. SHE REPORTED TAKING ASPIRIN AT HOME, BUT IS NOT ON ANY OTHER MEDICATIONS FOR RATE CONTROL. PATIENT REPORTS HAVING A HEART CATH ABOUT 6 MONTHS AGO BY . SHE REPORTS THAT SHE HAD A SMALL BLOCKAGE AT THAT TIME, BUT DID NOT REQUIRE A STENT. SHE WAS REFERRED TO AN NURSING CONSULTANT, BUT HAS NOT MADE IT THE TWO APPOINTMENTS THAT SHE WAS SCHEDULED FOR. ON ADMISSION, HER VITALS WERE: 97.7-78-18-97%-136/67. LABS WERE OBTAINED. WBC 8.9, RBC 4.61, HGB 13.5, HCT 40.7, PLT COUNT 224, D-DIMER 0.28, SODIUM 139, POTASSIUM 4.1, CHLORIDE 106, BUN 18, CREATININE 0.99, GLUCOSE 149, CALCIUM 9.1, MAGNESIUM 1.7, TOTAL BILI 0.70, AST 11, ALT 28, ALK PHOS 66, CREATINE KINASE 55, TROPONIN <4.0, BNP 19.5, TOTAL PROTEIN 7.0, ALBUMIN 3.6. A CHEST XRAY WAS OBTAINED AND REVEALED: NO ACUTE PULMONARY PROCESS. EKG REVEALED SINUS RHYTHM WTH HR 77 BPM. ON ADMISSION, SHE WAS STARTED ON NORMAL SALINE WITH MAGNESIUM AT 80 ML/HR, MORPHINE 2MG IV Q4H PRN PAIN, ECOTRIN 81MG DAILY, OTBS ACHS, HUMULIN R SLIDING SCALE. HER HOME MEDICATIONS OF ALPRAZOLAM, NEXIUM, FLONASE, GABAPENTIN, SINGULAIR, AND PHENERGAN WERE RESUMED. WE PLANNED TO OBTAIN SERIAL CARDIAC ENZYMES AND EKGS, AN ECHO, AND A CAROTID DOPPLER. OTHERWISE, WE PLANNED TO FOLLOW-UP WITH AM LABS AND CONTINUE TO MONITOR. ON THE MORNING FOLLOWING ADMISSION, PATIENT IS ALERT AND ORIENTED, SITTING UP IN BED ON MORNING ROUNDS. SHE DENIES CHEST PAIN OR OTHER COMPLAINTS THIS MORNING. NURSING STAFF REPORTS THAT SHE HAS HAD AN UNEVENTFUL NIGHT. ON EXAMINATION, HEART IS REGULAR IN RATE AND RHYTHM. BILATERAL LUNGS ARE CLEAR TO AUSCULTATION. ABDOMEN IS ROUND, SOFT, AND NON-TENDER WITH NORMAL BOWEL SOUNDS NOTED IN ALL QUADRANTS. GOOD RANGE OF MOTION NOTED TO UPPER AND LOWER EXTREMITIES WITH NO EDEMA. HER VITALS THIS MORNING ARE: 97.7-80-18-96%-143/65. LABS WERE OBTAINED. WBC 8.9, RBC 4.61, HGB 13.5, HCT 40.7, PLT COUNT 224, SODIUM 140, POTASSIUM 4.0, CHLORIDE 107, BUN 12, CREATININE 0.66, GLUCOSE 133, CALCIUM 8.5, MAGNESIUM 1.8, AST 10, ALT 23, ALK PHOS 60, TOTAL PROTEIN 6.6, ALBUMIN 3.2, TRIGLYCERIDES 119, CHOLESTEROL 208, LDL 133. REPEAT SERIAL CARDIAC ENZYMES HAVE BEEN NORMAL. NO CHANGES NOTED TO EKGs. AN ECHO WAS OBTAINED AND REVEALED: . CAROTID ULTRASOUND WAS OBTAINED AND REVEALED: . WE PLANNED FOR DISCHARGE. INSTRUCTIONS FOR MEDICATIONS AND FOLLOW-UP WERE DISCUSSED WITH PATIENT AND HER SIGNIFICANT OTHER. THEY VERBALIZED UNDERSTANDING OF ALL ORDERS. SHE WAS GIVEN NEW PRESCRIPTIONS FOR ECOTRIN 81MG DAILY AND ROSUVASTATIN 5MG HS. SHE WAS INSTRUCED TO CONTINUE HER REGULAR MEDICATIONS WELL WITH NO CHANGES MADE TO DOSAGES. SHE WAS ADVISED TO FOLLOW-UP WITH US IN THE OFFICE ON 08/22/23 AND TO FOLLOW-UP WITH HER MUSIC WORKER ON 08/17/23. PATIENT WAS DISCHARGED HOME WITH HER FAMILY IN STABLE CONDITION. TIME SPENT ON CLINICAL ASSESSMENT, REVIEWING LABS AND IMAGING, DECISION MAKING, DISCHARGE INSTRUCTIONS, PREPARING DISCHARGE PAPERS, AND DOCUMENTATION GREATER THAN 75 MINUTES. - Discharge Plan Disposition: 01 HOME, SELF-CARE Condition: Stable Prescriptions: aspirin 81 mg PO DAILY #30 tabs rosuvastatin 5 mg PO HS #30 tabs - Follow up/Referrals Follow up/Referrals: Azra Del Real [Nurse Practitioner] - 08/22/23 9:40 am Harmeet Bingham [STAFF PHYSICIAN] - 08/17/23 11:00 am ([facility] office) - Instructions Instructions: Vertigo, [id number], Nonspecific Chest Pain, Adult, [id number], Dizziness, [id number] Additional Instructions: DIET TOLERATED. ACTIVITY TOLERATED. Forms: Excuse From Work or School, Post Hospital Follow Up Care
[2023-08-08 12:10] VITALS: BP 144/64; RESP 20; TEMP 98; O2SAT 100
--- NOTE | 2023-08-08 13:32 | DR.CARD ---
Cardiology Consult Consultation for Day of: Date: 08/08/23 Chief Complaint Chief Complaint: atrial fibrillations/palpitations Allergies Allergies Allergy/AdvReac Type Severity Reaction Status Date / Time Iodinated Contrast Media Allergy Verified 02/21/20 21:21 History of Present Illness History of Present Illness: 68 year old female s/p coronary angiogram 03/2023 at [facility] by Dr Jensen with findings of non-obstructive coronary artery disease, preserved lv function, no evidence of mitral insufficiency, hx of MVP, PAF,SD 27 years ago with prior cath by Dr Fatima several years ago as well at [facility], and Diabetes. Prior Surgery hx of Hysterectomy, C section x 2 Appendectomy, and cardiac cath 1999. She was admitted by her primary care physician secondary to a complaint of palpitations that to her have been increasing in tendency, duration and frequency, and symptoms of near syncope. She reports a history of atrial fibrillation in the past but has never been on anticoagulation. She does not monitor her blood pressure at home, but is concerned that it has been running low in the hospital. only other complaint she voices is left ankle edema. She does also have a history of diabetes and diabetic neuropathy, but not on current medications. Past Medical History Past Medical History: Anxiety, Coronary Artery Disease, Diabetes and SD Past Surgical History Surgical History: Appendectomy, Cholecystectomy and Hysterectomy Family History Family Medical History: Diabetes Mellitus and Hypertension Social History Does patient currently use any type of tobacco product: No Have you used tobacco products in the last 12 months: No Type of Tobacco Use: None Does any household member use tobacco: No Alcohol Use: Occasionally Drug Use: None Medications Home Medications: Iodinated Contrast Media Allergy (Verified 02/21/20 21:21) CONTINUE taking the following medications esomeprazole magnesium 40 mg capsule,delayed release 40 mg PO DAILY 08/07/23 [History] montelukast 10 mg tablet 10 mg PO QDAY 08/07/23 [History] promethazine 25 mg tablet 25 mg PO Q4-6H 08/07/23 [History] Review of Systems Constitutional: See HPI Eyes: No Symptoms Reported Respiratory: No Symptoms Reported Cardiovascular: Palpitations, Light Headedness and Other Gastrointestinal: No Symptoms Reported Musculoskeletal: Other (left ankle swells, on gabapetin for diabetic neuropathy) Skin: No Symptoms Reported Neurological: Other (no cva hx) Physical Exam Vital Signs: Vital Signs Temperature 97.7 F Temperature 97.6 F Pulse Rate [Left Brachial] 80 Pulse Rate [Left Brachial] 77 Respiratory Rate 18 Respiratory Rate 20 Blood Pressure [Left Arm] 113/57 Blood Pressure [Right Arm] 143/65 O2 Sat by Pulse Oximetry 96 O2 Sat by Pulse Oximetry 99 Oriented: Normal Eyes: Normal Nose: Normal Respiratory: Clear Throughout Cardiovascular: Normal Auscultation: Bowel Sounds: Normal Tenderness: Normal Psychiatric: Normal Medical Decision Making Significant abnormal labs: reviewed Plan Plan: 1. History of Atrial Fibrillation with a [id number] score of 3 (AGE>65, FEMALE, DIABETES HX) 2. Non-Obstructive Coronary Artery Disease 03/2023 cardiac cath 3. Palpitations 4. Diabetes 5. Diabetic Neuropathy Plan: 1. Chart reviewed, prior office note reviewed, cath report reviewed, as well as current labs, EKG and Telemetry strips. 2. We see no current evidence of either atrial or ventricular arrhythmias at present. She does give a prior history of atrial fibrillation however. 3. We recommend obtaining a 14 day outpatient event monitor. Continue current telemetry monitoring while hospitalized. 4. Oral anticoagulation recommendation for atrial arrhythmias (flutter or f ibrillation) will be made once the arrhythmia has been identified. 5. Continue electrolyte replacement as needed, and IV hydration. 6. Echocardiogram to evaluate left ventricular function and valvular integrity. Carotids ordered as well. 7. Outpatient EP evaluation with Dr Kuo will be arranged. 8. Reviewed and discussed the patient's case and care plan with Dr Bingham who will see later today, and make additional comments/recommendations.
[2023-08-08] MEDS ORDERED: CRESTOR TAB 10 MG PO SCH (21:00)
== END 2023-08-08 13:24 | disposition home or self-care (01) ==
LOC: MED/SURG
PROVIDERS: ADMIT Internal Medicine; ATTEND Internal Medicine
DX: R07.89 Other chest pain; R55 Syncope and collapse; E83.42 Hypomagnesemia; K21.9 Gastro-esophageal reflux disease without esophagitis; R00.2 Palpitations; E11.65 Type 2 diabetes mellitus with hyperglycemia; I25.10 Atherosclerotic heart disease of native coronary artery without angina pectoris; F41.8 Other specified anxiety disorders